=== PATIENT | female | born 1970 | race Caucasian/White ===

== ENCOUNTER 2017-08-08 08:46 | Emergency (ER) | payer OTHER ==
[2017-08-08 08:59] VITALS: BP 119/71; PULSE 81; TEMP 97.9; BMI 22.6
[2017-08-08] MEDS ORDERED: ONDANSETRON *ODT* 4 MG TABLET SL ONE (09:34)
[2017-08-08] MEDS ORDERED: ONDANSETRON *ODT* 4 MG TABLET ONE (09:39)
--- NOTE | 2017-08-08 10:12 | PDOC ---
History of Present Illness - General Chief Complaint: Nausea/Vomiting Stated Complaint: VOMITING Time Seen by Provider: 08/08/17 09:33 History Source: Patient Exam Limitations: No Limitations - History of Present Illness Initial Comments: 08/08/17 10:06 Patient is a 47-year-old female, history of asthma, gastric bypass, presents with vomiting, 2 episodes, tactile fever, bodyaches and headache. It is tolerating fluids just decreased solids. Ambulatory to ER. No fever upon arrival. Vital signs are stable Past Medical History: [Denies]. Allergies: No known allergies Medications: [NOne] Family History: Non-contributory Social History: Denies smoking, alcohol use, or IVDU Review of Systems GENERAL/CONSTITUTIONAL: [Tactile fever, body aches and chills No weakness. No weight change.] HEAD, EYES, EARS, NOSE AND THROAT: [No change in vision. No ear pain or discharge. No sore throat. ] CARDIOVASCULAR: [No chest pain or shortness of breath.] RESPIRATORY: [No cough, wheezing, or hemoptysis.] GASTROINTESTINAL: [Nausea, vomiting, no diarrhea or constipation. No rectal bleeding.] GENITOURINARY: [No dysuria, frequency, or change in urination.] MUSCULOSKELETAL: [No joint or muscle swelling or pain. No neck or back pain.] SKIN AND BREASTS: [No rash or easy bruising.] NEUROLOGIC: [No headache, vertigo, loss of consciousness, or loss of sensation.] PSYCHIATRIC: [No depression or anxiety.] ENDOCRINE: [No increased thirst. No abnormal weight change.] HEMATOLOGIC/LYMPHATIC: [No anemia, easy bleeding, or history of blood clots.] ALLERGIC/IMMUNOLOGIC: [No hives or skin allergy. No latex allergy.] Physical Exam: GENERAL: [The patient is awake, alert, and fully oriented, in no acute distress. ] EYES: [Pupils equal, round and reactive to light, extraocular movements intact, sclera anicteric, conjunctiva clear.] ENT: [Ears normal, nares patent, oropharynx clear without exudates. Moist mucous membranes. No uvula deviation] NECK: [Normal range of motion, supple without lymphadenopathy, JVD, or masses.] LUNGS: [Breath sounds equal, clear to auscultation bilaterally. No wheezes, and no crackles.] HEART: [Regular rate and rhythm, normal S1 and S2 without murmur, rub or gallop. ] ABDOMEN: [Soft, nontender, normoactive bowel sounds. No guarding, no rebound. No masses. No bruising or abrasions] RECTAL : [Guaiac negative, normal rectal tone.] MUSCULOSKELETAL: [Normal range of motion, no edema. No clubbing or cyanosis. No cords, erythema, or tenderness. No CVA Tenderness with fist.] NEUROLOGICAL: [Cranial nerves II through XII grossly intact. Normal speech, normal gait.] PSYCH: [Normal mood, normal affect.] SKIN: [Warm, Dry, normal turgor, no rashes or lesions noted.] 08/08/17 10:12 Past History - Past Medical History Allergies/Adverse Reactions: Allergies Allergy/AdvReac Type Severity Reaction Status Date / Time No Known Allergies Allergy Verified 08/08/17 08:52 Home Medications: Ambulatory Orders No Home Medications 0 dose .ROUTE UTDICT 01/05/14 Nitrofurantoin Monohyd/M-Cryst [Macrobid -] 100 mg PO BID #14 capsule 08/08/17 Ondansetron [Zofran Odt -] 4 mg SL TID #10 od.tablet 08/08/17 Asthma: Yes COPD: No - Surgical History Abdominal Surgery: Yes (gastric bypass) Cholecystectomy: Yes - Immunization History Immunization Up to Date: No - Suicide/Smoking/Psychosocial Hx Smoking History: Current every day smoker Have you smoked in the past 12 months: Yes Number of Cigarettes Smoked Daily: 2 Information on smoking cessation initiated: No 'Breaking Loose' booklet given: 08/03/13 Hx Alcohol Use: Yes Drug/Substance Use Hx: No Substance Use Type: None *Physical Exam - Vital Signs Last Vital Signs Temp Pulse Resp BP Pulse Ox 97.9 F 81 18 119/71 100 08/08/17 08:52 08/08/17 08:52 08/08/17 08:52 08/08/17 08:52 08/08/17 08:52 ED Treatment Course - Medications Given in the ED: ED Medications Discontinued Medications Generic Name Dose Route Start Last Admin Trade Name Freq PRN Reason Stop Dose Admin Ondansetron HCl 4 mg 08/08/17 09:34 08/08/17 09:38 Zofran Odt - SL 08/08/17 09:35 4 mg ONCE ONE Administration Medical Decision Making - Medical Decision Making 08/08/17 10:13 Last peak: Patient with influenza-type illness, has been with the same patient is complaining of nausea but able to tolerate some fluids will give Zofran by mouth rapid influenza sent patient is nonseptic appearing, vital signs are stable with no respiratory symptoms or distress. 08/08/17 10:42 Rapid influenza is negative, we will send urinalysis and urine 08/08/17 13:03 Laboratory Results - last 24 hr 08/08/17 10:35 Urine Color Marilyn Urine Appearance Slcloudy Urine pH 5.0 Ur Specific [place] 1.030 Urine Protein 1+ H Urine Glucose (UA) Negative Urine Ketones Trace H Urine Blood Negative Urine Nitrite Positive Urine Bilirubin 2.0 Urine Urobilinogen 4.0 e.u/dl H Ur Leukocyte Esterase Trace Urine WBC (Auto) 3 Urine RBC (Auto) 1 Ur Epithelial Cells Moderate Urine Bacteria Moderate Hyaline Casts 9 Urine Mucus Many Urine HCG, Qual Negative Patient with positive nitrates significant for urinary tract infection will discharge on Macrobid, Motrin for pain, Zofran for nausea, follow up with PMD. If any fever, dizziness, increased vomiting unable to tolerate by mouth or any other concerns return to ER *DC/Admit/Observation/Transfer Diagnosis at time of Disposition: Vomiting Qualifiers: Vomiting type: unspecified Vomiting Intractability: non-intractable Nausea presence: with nausea Qualified Code(s): R11.2 - Nausea with vomiting, unspecified Urinary tract infection Qualifiers: Urinary tract infection type: site unspecified Hematuria presence: with hematuria Qualified Code(s): N39.0 - Urinary tract infection, site not specified - Discharge Dispostion Disposition: HOME Condition at time of disposition: Stable Admit: No - Prescriptions Prescriptions: Nitrofurantoin Monohyd/M-Cryst [Macrobid -] 100 mg PO BID #14 capsule Ondansetron [Zofran Odt -] 4 mg SL TID #10 od.tablet - Referrals Referrals: Damir Chi MD [Primary Care Provider] - - Patient Instructions Printed Discharge Instructions: Urinary Tract Infection, DI for Vomiting -- Adult Additional Instructions: Please eat a bland diet, bread rice Tea toast PLease make sure to increase her fluid intake, Gatorade or water - Post Discharge Activity Forms/Work/School Notes: Back to Work
[2017-08-08 10:42] LABS: HCG,QUALITATIVE URINE NEGATIVE; URINE APPEARANCE SLCLOUDY; URINE BLOOD NEGATIVE (NEGATIVE); URINE COLOR AMBER; URINE GLUCOSE (UA) NEGATIVE (NEGATIVE); URINE KETONE TRACE (NEGATIVE); URINE LEUK ESTERASE TRACE (NEGATIVE); URINE NITRITE POSITIVE (NEGATIVE); URINE UROBILINOGEN 4.0 E.U/dl mg/dL (0.2-1.0)
[2017-08-08 10:44] LABS: URINE PROTEIN 1+ (NEGATIVE)
[2017-08-08 10:49] LABS: EPI CELLS MODERATE /HPF (FEW); URINE BACTERIA MODERATE /hpf (NONE SEEN); URINE HYALINE CAST 9 /lpf; URINE MUCUS MANY
--- NOTE | 2017-08-10 07:55 | PDOC ---
Patient Follow-up (Call Back) - Post ED Follow - Up Condition at time of discharge: Stable Disposition at time of original discharge: HOME Reason for Call Back: Abnwl. Microbiology (Patient's urine culture on preliminary shows non-lactose fermenting GNB. Pt currently on Macrobid. Will await final report.)
--- NOTE | 2017-08-11 07:26 | PDOC ---
Patient Follow-up (Call Back) - Post ED Follow - Up Condition at time of discharge: Stable Disposition at time of original discharge: HOME Reason for Call Back: Abnwl. Microbiology (E.Coli with sensitivity to macrobid. No further action needed at this time.)
== END 2017-08-08 11:20 | disposition home or self-care (01) ==
LOC: JERFT 08:46 → JER 08:46 → JERFT 11:20
DX: N39.0 Urinary tract infection, site not specified (principal); J45.909 Unspecified asthma, uncomplicated; F17.210 Nicotine dependence, cigarettes, uncomplicated; Z98.84 Bariatric surgery status
CPT/HCPCS: 81003; 81015; 84703; 87086; 87186; 87804; 99281-25

== ENCOUNTER 2018-03-20 08:55 | Emergency (ER) | payer OTHER ==
[2018-03-20 09:00] VITALS: BP 112/40; PULSE 65; TEMP 98.2; BMI 24.0
[2018-03-20] MEDS ORDERED: predniSONE 20 MG TABLET (UD) PO ONE (09:26)
[2018-03-20] MEDS ORDERED: ALBUTEROL SO4 2.5/IPRATROPIUM 0.5 INH SOL 3 ML VIAL.NEB. NEB ONE ×2 (09:26→09:27)
[2018-03-20] MEDS ORDERED: predniSONE 20 MG TABLET (UD) ONE (09:27)
--- NOTE | 2018-03-20 09:30 | PDOC ---
History of Present Illness - General Chief Complaint: Cold Symptoms Stated Complaint: CHEST PAIN Time Seen by Provider: 03/20/18 09:22 History Source: Patient Exam Limitations: No Limitations - History of Present Illness Initial Comments: 03/20/18 09:26 Patient came to emergency department for evaluation of worsening cough chills and fevers, headache and sore throat pain. States coughing has worsened this morning where she noted some blood streaks but phlegm is primarily green. Has used no medications other than teas for resolved. 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 Timing/Duration: reports: changing over time, getting worse Associated Symptoms: reports: cough, fever/chills, headache, nasal congestion, nasal drainage, sore throat Past History - Travel Traveled outside of the country in the last 30 days: No Close contact w/someone who was outside of country & ill: No - Past Medical History Allergies/Adverse Reactions: Allergies Allergy/AdvReac Type Severity Reaction Status Date / Time No Known Allergies Allergy Verified 08/08/17 08:52 Home Medications: Ambulatory Orders Albuterol Sulfate Inhaler - [Ventolin HFA Inhaler -] 1 - 2 inh PO Q4H #1 inhaler 03/20/18 predniSONE [Deltasone -] 20 mg PO BID #8 tablet 03/20/18 Asthma: Yes COPD: No - Surgical History Abdominal Surgery: Yes (gastric bypass) Cholecystectomy: Yes - Immunization History Immunization Up to Date: No - Suicide/Smoking/Psychosocial Hx Smoking History: Never smoked Have you smoked in the past 12 months: Yes Number of Cigarettes Smoked Daily: 2 Information on smoking cessation initiated: No 'Breaking Loose' booklet given: 08/03/13 Hx Alcohol Use: No Drug/Substance Use Hx: No Substance Use Type: None Review of Systems - Review of Systems Able to Perform ROS?: Yes Is the patient limited Czech proficient: Yes Constitutional: Yes: Symptoms Reported, See HPI, Chills, Fever, Malaise HEENTM: Yes: Symptoms Reported, See HPI, Nose Congestion, Throat Pain Respiratory: Yes: Symptoms reported, See HPI, Cough, Wheezing Cardiac (ROS): No: Symptoms Reported, Chest Pain ABD/GI: No: Constipated, Diarrhea : No: Symptoms Reported Musculoskeletal: Yes: Symptoms Reported Neurological: No: Symptoms reported, Headache All Other Systems: Reviewed and Negative *Physical Exam - Vital Signs Last Vital Signs Temp Pulse Resp BP Pulse Ox 98.2 F 65 16 112/40 100 03/20/18 08:57 03/20/18 08:57 03/20/18 08:57 03/20/18 08:57 03/20/18 08:57 - Physical Exam General Appearance: Yes: Nourished, Appropriately Dressed, Apparent Distress, Mild Distress HEENT: positive: SAMMIE, TMs Normal, Pharynx Normal, Rhinorrhea Neck: positive: Supple. negative: Lymphadenopathy (R), Lymphadenopathy (L) Respiratory/Chest: positive: Wheezing (coarse insp and expiratory BS ). negative: Lungs Clear Cardiovascular: positive: Regular Rate Gastrointestinal/Abdominal: positive: Soft. negative: Tender Musculoskeletal: positive: Normal Inspection Extremity: positive: Normal Capillary Refill, Normal Inspection Integumentary: positive: Normal Color, Dry, Warm Neurologic: positive: vp customer development II-XII NML intact, Fully Oriented, Alert, Normal Mood/ Affect, Normal Response, Motor Strength 5/5 Progress Note - Progress Note Progress Note: Much improved after 2 DuoNeb and prednisone. Patient states feels well and is ready for discharge. *DC/Admit/Observation/Transfer Diagnosis at time of Disposition: Upper respiratory infection, acute - Discharge Dispostion Disposition: HOME Condition at time of disposition: Stable Decision to Admit order: No - Prescriptions Prescriptions: Albuterol Sulfate Inhaler - [Ventolin HFA Inhaler -] 1 - 2 inh PO Q4H #1 inhaler predniSONE [Deltasone -] 20 mg PO BID #8 tablet - Referrals - Patient Instructions Printed Discharge Instructions: DI for Viral Upper Respiratory Infection -- Adult Additional Instructions: Rest, drink lots of fluids: Teas, water, soups, Pedialyte Saltwater gargles Steamy showers/seem to face break up mucus Avoid contact with others until fevers and cough resolved Lots of handwashing and good hygiene Continue [id number] medications for symptomatic relief Tylenol or Motrin for fever and pain Continue albuterol nebulizers every 4-6 hours for the next 2 days then as needed for continued cough Prednisone as directed until completed Followup with private physician in one to 2 days Return to emergency department / pediatric hospital for worsened symptoms, fevers, dehydration - Post Discharge Activity Forms/Work/School Notes: Back to Work
== END 2018-03-20 10:20 | disposition home or self-care (01) ==
LOC: JERFT 08:55
PROC: 3E0F7GC Introduction of Other Therapeutic Substance into Respiratory Tract, Via Natural or Artificial Opening (ICD-10-PCS; principal; 2018-03-20)
DX: J11.1 Influenza due to unidentified influenza virus with other respiratory manifestations (principal); Z87.891 Personal history of nicotine dependence; J45.909 Unspecified asthma, uncomplicated; Z98.84 Bariatric surgery status
CPT/HCPCS: 94640; 99281-25; J7620

== ENCOUNTER 2018-06-06 09:31 | Emergency (ER) | payer OTHER ==
[2018-06-06 09:38] VITALS: BP 128/52; PULSE 63; TEMP 97.5; BMI 24.5
--- NOTE | 2018-06-06 10:34 | PDOC ---
History of Present Illness - General Chief Complaint: Eye Problem Stated Complaint: EYE PROBLEM Time Seen by Provider: 06/06/18 10:21 History Source: Patient Exam Limitations: Clinical Condition - History of Present Illness Initial Comments: 06/06/18 10:35 Patient with no significant past medical history presented with complaint of redness and pain to right eye upon waking this morning. Denies discharge from right eye. Denies blurry vision or vision changes. Patient denies any other symptoms Timing/Duration: 4-6 hours Past History - Past Medical History Allergies/Adverse Reactions: Allergies Allergy/AdvReac Type Severity Reaction Status Date / Time No Known Allergies Allergy Verified 06/06/18 09:35 Home Medications: Ambulatory Orders Ofloxacin 0.3% Ophth Soln [Ocuflox -] 2 drop OP Q6H 5 Days #1 bottle 06/06/18 Asthma: Yes COPD: No - Surgical History Abdominal Surgery: Yes (gastric bypass) Cholecystectomy: Yes - Immunization History Immunization Up to Date: No - Suicide/Smoking/Psychosocial Hx Smoking History: Former smoker Have you smoked in the past 12 months: No Number of Cigarettes Smoked Daily: 2 Information on smoking cessation initiated: No 'Breaking Loose' booklet given: 08/03/13 Hx Alcohol Use: No Drug/Substance Use Hx: No Substance Use Type: None Review of Systems - Review of Systems Able to Perform ROS?: Yes Is the patient limited Nepalese proficient: No HEENTM: Yes: Symptoms Reported, See HPI, Eye Pain (right eye). No: Blurred Vision, Tearing, Recent change in vision, Double Vision, Cataracts, Ear Pain, Ocular Prothesis, Ear Discharge, Nose Pain, Nose Congestion, Tinnitus, Nose Bleeding, Hearing Loss, Throat Pain, Throat Swelling, Mouth Pain, Dental Problems, Difficulty Swallowing, Mouth Swelling, Other Respiratory: No: Symptoms reported, See HPI, Cough, Orthopnea, Shortness of Breath, SOB with Exertion, SOB at Rest, Stridor, Wheezing, Productive cough, Hemoptysis, Other Cardiac (ROS): No: Symptoms Reported, See HPI, Chest Pain, Edema, Irregular Heart Rate, Lightheadedness, Palpitations, Syncope, Chest Tightness, Other ABD/GI: No: Symptoms Reported, See HPI, Abdominal Distended, Abd. Pain w/ defecation, Blood Streaked Bowels, Constipated, Diarrhea, Difficulty Swallowing , Nausea, Poor Appetite, Poor Fluid Intake, Rectal Bleeding, Vomiting, Indigestion, Abdominal cramping, Tarry Stools, Other All Other Systems: Reviewed and Negative *Physical Exam - Vital Signs Last Vital Signs Temp Pulse Resp BP Pulse Ox 97.5 F L 63 15 128/52 L 100 06/06/18 09:35 12 09:35 12 09:35 06/06/18 09:35 06/06/18 09:35 - Physical Exam Comments: 06/06/18 10:36 GENERAL: Well developed, well nourished. Awake and alert. No acute distress. HEENT: small area of bright red patchy on lateral side of right conjunctiva c/ w subconjunctiva hemorrhage. Normocephalic, atraumatic. PERRLA, EOMI. No left conjunctival pallor. Sclera are non-icteric. Moist mucous membranes. Oropharynx is clear. NECK: Supple. Full ROM. CARDIOVASCULAR: Regular rate and rhythm. No murmurs, rubs, or gallops. Distal pulses are 2+ and symmetric. PULMONARY: No evidence of respiratory distress. Lungs clear to auscultation bilaterally. No wheezing, rales or rhonchi. ABDOMINAL: Soft. Non-tender. Non-distended. No rebound or guarding. No organomegaly. Normoactive bowel sounds. MUSCULOSKELETAL Normal range of motion at all joints. EXTREMITIES: No cyanosis. No clubbing. No edema. No calf tenderness. SKIN: Warm and dry. Normal capillary refill. No rashes. No jaundice. NEUROLOGICAL: Alert, awake, appropriate. Gait is normal without ataxia. PSYCHIATRIC: Cooperative. Good eye contact. Appropriate mood General Appearance: Yes: Nourished, Appropriately Dressed. No: Apparent Distress Moderate Sedation - Procedure Monitoring Vital Signs: Procedure Monitoring Vital Signs Temperature 97.5 F L 06/06/18 09:35 Pulse Rate 63 06/06/18 09:35 Respiratory Rate 15 06/06/18 09:35 Blood Pressure 128/52 L 06/06/18 09:35 O2 Sat by Pulse Oximetry (%) 100 06/06/18 09:35 Medical Decision Making - Medical Decision Making 06/06/18 10:37 Patient with no syndrome past medication present with complaint of pain and redness in right eye upon wake this morning with no other symptoms . Exam significant for small bright red patch on lateral side of right conjunctiva consistent with subconjunctival hemorrhage otherwise unremarkable.visual acuity normal. Patient will be discharged home on eyedrops with ophthalmology follow- up as needed *DC/Admit/Observation/Transfer Diagnosis at time of Disposition: Subconjunctival hemorrhage Qualifiers: Laterality: right Qualified Code(s): H11.31 - Conjunctival hemorrhage, right eye Conjunctivitis Qualifiers: Conjunctivitis type: unspecified - Discharge Dispostion Disposition: HOME Condition at time of disposition: Stable Decision to Admit order: No - Prescriptions Prescriptions: Ofloxacin 0.3% Ophth Soln [Ocuflox -] 2 drop OP Q6H 5 Days #1 bottle - Referrals Referrals: Damir Chi MD [Primary Care Provider] - - Patient Instructions Printed Discharge Instructions: DI for Subconjunctival Hemorrhage Additional Instructions: use eye drops as instructed. follow-up with ophthalmology is symptoms persist for more than 4 days - Post Discharge Activity Forms/Work/School Notes: Back to Work
== END 2018-06-06 10:45 | disposition home or self-care (01) ==
LOC: JERFT 09:31
DX: H11.31 Conjunctival hemorrhage, right eye (principal)
CPT/HCPCS: 99281-25

== ENCOUNTER 2022-01-27 21:27 | Emergency (ER) | payer OTHER ==
[2022-01-27 21:43] VITALS: BP 109/73; PULSE 74; RESP 18; TEMP 98; BMI 25.9
== END 2022-01-27 23:48 | disposition home or self-care (01) ==
LOC: JER 21:27
PROC: 0HQFXZZ Repair Right Hand Skin, External Approach (ICD-10-PCS; principal; 2022-01-27)
DX: S61.011A Laceration without foreign body of right thumb without damage to nail, initial encounter (principal); W26.0XXA Contact with knife, initial encounter
CPT/HCPCS: 99282-25

== ENCOUNTER 2022-08-10 08:14 | Emergency (ER) | payer OTHER ==
[2022-08-10 08:20] VITALS: BP 129/71; PULSE 75; RESP 18; TEMP 98.2; BMI 24.5
== END 2022-08-10 09:25 | disposition home or self-care (01) ==
LOC: JERFT 08:14 → JER 08:14 → MERGE 08:14 → JERFT 09:25
DX: J01.00 Acute maxillary sinusitis, unspecified (principal); R09.81 Nasal congestion
CPT/HCPCS: 0241U-QW; 99283-25